=== PATIENT | male | born 1960 | race Caucasian/White ===

== ENCOUNTER 2018-05-10 09:56 | Outpatient (CLI) | payer OTHER ==
--- NOTE | 2018-05-10 11:30 | RAD ---
PA AND LATERAL CHEST: History: Cough, congestion. FINDINGS: Comparison is made with 04-24-18. The heart size is normal. The lungs are expanded with mild chronic changes. No focal areas of consoli dation, pneumothoraces or pleural effusions are seen. No acute osseous abnormalities are identified. IMPRESSION: No acute process. POS: [facility]
== END 2018-05-10 09:57 | disposition home or self-care (01) ==
LOC: SCSRAD 09:56
PROVIDERS: ATTEND Family Medicine
DX: J20.8 Acute bronchitis due to other specified organisms (principal); D64.9 Anemia, unspecified
CPT/HCPCS: 71046

== ENCOUNTER 2018-06-21 16:46 | Emergency (ER) | payer OTHER ==
--- NOTE | 2018-06-21 17:29 | RAD ---
CHEST TWO VIEWS: 06/21/18 HISTORY: Cough. COMPARISON: 06/10/18. FINDINGS: The cardiac silhouette and pulmonary vasculature are unremarkable. Lungs remain slightly hyperinflate d. Atelectasis at the bases on the previous study is no longer apparent. No confluent air space conso lidation, pneumothorax, or pleural fluid. IMPRESSION: No active cardiopulmonary abnormalities are demonstrated. POS: [facility]
== END 2018-06-21 22:49 | disposition home or self-care (01) ==
LOC: SCSER 16:46
DX: J06.9 Acute upper respiratory infection, unspecified (principal)
CPT/HCPCS: 71046; 87081; 87430; 87804

== ENCOUNTER 2019-07-18 16:25 | Outpatient (CLI) | payer OTHER ==
--- NOTE | 2019-07-18 17:08 | RAD ---
Chest one view Abdomen 2 views HISTORY: Abdomen pain. FINDINGS: Cardiac silhouette and pulmonary vasculature are unremarkable. Mediastinum is midline. No c onfluent airspace consolidation or evidence of free subdiaphragmatic gas. Gas and stool over the colon and rectum. No differential air-fluid levels or evidence of free intrape ritoneal gas. Vascular calcifications project over the pelvis. IMPRESSION: Nonspecific bowel gas pattern. No acute abnormalities are demonstrated.
== END 2019-07-18 16:26 | disposition home or self-care (01) ==
LOC: SCSRAD 16:25
PROVIDERS: ATTEND Family Medicine
DX: R10.12 Left upper quadrant pain (principal)
CPT/HCPCS: 74022

== ENCOUNTER 2023-07-02 13:05 | Outpatient (CLI) | payer OTHER | END 2023-07-02 13:06 | disposition home or self-care (01) | LOC: CT 13:05 | PROVIDERS: ATTEND Internal Medicine | DX: Z12.2 Encounter for screening for malignant neoplasm of respiratory organs (principal); F17.210 Nicotine dependence, cigarettes, uncomplicated; R91.8 Other nonspecific abnormal finding of lung field | CPT/HCPCS: 71271 ==